=== PATIENT | male | born 1960 | race Caucasian/White ===

== ENCOUNTER 2021-06-07 23:04 | Emergency (ER) | payer BC, OTHER ==
[~2021-06-07] VITALS: Ht 167.6 cm; Wt 90.0 kg
[2021-06-08] MEDS ORDERED: KETOROLAC 60MG/2ML VIAL IM STA (00:31)
[2021-06-08 00:41] VITALS: BP 131/84
[2021-06-08 00:55] LABS: BASOPHILS % 0.6 % (0.0-2.0); EOSINOPHILS % 0.8 % (0.0-5.0); HEMATOCRIT. 41.9 % (42.0-52.0); LYMPHOCYTES % 16.3 % (20.0-50.0); MEAN CORPUSCULAR HEMOGLOBIN 28.9 pg (28.0-32.0); MEAN CORPUSCULAR VOLUME 86.5 fL (80.0-94.0); MEAN PLATELET VOLUME 7.7 fl (7.4-10.4); MONOCYTES % 4.9 % (2.0-8.0); NEUTROPHILS % 77.4 % (40.0-76.0); PLATELET 226 x1000/uL (130-400); RED BLOOD CELL COUNT 4.85 mill/uL (4.7-6.1); RED CELL DISTRIBUTION WIDTH 13.9 % (11.6-14.6)
[2021-06-08 01:02] LABS: CHLORIDE 108 mEq/L (98-107)
[2021-06-08] MEDS ORDERED: TAMS-11 MT (21:20)
[2021-06-08] MEDS ORDERED: IBUP-2029 MT (21:20)
== END 2021-06-08 03:13 | disposition home or self-care (01) ==
LOC: ER 23:04
DX: R10.9 Unspecified abdominal pain (principal); M51.36 Other intervertebral disc degeneration, lumbar region; N20.0 Calculus of kidney; N28.1 Cyst of kidney, acquired; K76.0 Fatty (change of) liver, not elsewhere classified; E11.9 Type 2 diabetes mellitus without complications; Z98.890 Other specified postprocedural states
CPT/HCPCS: 36415; 74176; 80053; 83690; 85025; 96372; 99284; J1885

== ENCOUNTER 2021-06-08 17:21 | Emergency (ER) | payer BC ==
[~2021-06-08] VITALS: Ht 167.6 cm; Wt 90.0 kg
[2021-06-08] MEDS ORDERED: KETOROLAC 60MG/2ML VIAL IM ONE (18:45)
[2021-06-08 19:12] VITALS: BP 193/105
[2021-06-08 20:36] LABS: CLARITY URINE CLEAR (CLEAR); COLOR URINE YELLOW (YELLOW); KETONES URINE TRACE (NEGATIVE); LEUKOCYTE ESTERASE URINE NEGATIVE (NEGATIVE); NITRITE URINE NEGATIVE (NEGATIVE); OCCULT BLOOD URINE 2+ (NEGATIVE); PROTEIN URINE TRACE (NEGATIVE); SPECIFIC GRAVITY URINE 1.025 (1.005-1.030); UROBILINOGEN URINE 0.2 E.U./dL (0.2-1.0)
[2021-06-08] MEDS ORDERED: IBUP-2029 MT (21:20)
[2021-06-08] MEDS ORDERED: TAMS-11 MT (21:20)
== END 2021-06-08 21:30 | disposition home or self-care (01) ==
LOC: ER 17:21
DX: N23 Unspecified renal colic (principal); E11.9 Type 2 diabetes mellitus without complications
CPT/HCPCS: 81003; 96372; 99283; J1885